=== PATIENT | male | born 1965 | race Caucasian/White ===

== ENCOUNTER 2017-02-27 21:07 | Emergency (ER) | payer SELFPAY ==
[~2017-02-27] VITALS: Ht 185.4 cm; Wt 86.4 kg
--- OUTSIDE RECORDS SUMMARY | 2017-02-27 21:11 | XMS REPORT | Continuity of Care Document ---
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 03/05/2016 FLORECITA AMAYA MD Ot J30.9 ALLERGIC RHINITIS, UNSPECIFIED 03/05/2016 FLORECITA AMAYA MD Ot N52.9 MALE ERECTILE DYSFUNCTION, UNSPECIFIED 03/05/2016 FLORECITA AMAYA MD Ot R00.0 TACHYCARDIA, UNSPECIFIED 03/05/2016 FLORECITA AMAYA MD Ot R03.0 ELEVATED BLOOD-PRESSURE READING, W/O SHELIA 03/05/2016 FLORECITA AMAYA MD Ot R55 SYNCOPE AND COLLAPSE 05/07/2016 FLORECITA AMAYA MD Ot 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 Visit Date/Time Discharge Status Pt. Type Provider Facility Loc./Unit Complaint [id number] 02/27/2017 21:07:00 PEN Preadmit [facility] ED [id number] 03/02/2016 15:56:00 ACT Outpatient FLORECITA AMAYA MD [facility] LAB [id number] 01/11/2013 09:55:00 Document Registration
--- OUTSIDE RECORDS SUMMARY | 2017-02-27 21:16 | XMS REPORT | Continuity of Care Document ---
Author Author [facility] Address Unknown Phone Unavailable Allergies Medications Problems [...] Status Pt. Type Provider Facility Loc./Unit Complaint [id number] 02/27/2017 21:12:00 ACT Emergency SOFI JOHNSON MD [facility] ED [id number] 03/02/2016 15:56:00 ACT Outpatient FLORECITA AMAYA MD [facility] LAB [id number] 01/11/2013 09:55:00 Document Registration
[2017-02-27] MEDS ORDERED: PROP10TA8 PO (21:27)
[2017-02-27] MEDS ORDERED: ALPR0.25 PO (21:27)
[2017-02-27] MEDS ORDERED: ASPI325T4 PO (21:27)
[2017-02-27 22:01] LABS: BASOPHILS % (AUTO) 0 % (0-2); EOSINOPHILS # (AUTO) 0.2 10^3uL; EOSINOPHILS % (AUTO) 1 % (0-4); LYMPHOCYTES # (AUTO) 1.4 X10^3; MEAN CORPUSCULAR HEMOGLOBIN 29.8 PG (26.0-34.0); MEAN CORPUSCULAR HGB CONC 34.9 g/dL (31.0-37.0); MEAN CORPUSCULAR VOLUME 86 FL (80-100); MEAN PLATELET VOLUME 9.1 FL (6.0-9.5); MONOCYTES # (AUTO) 1.1 X10^3; MONOCYTES % (AUTO) 8 % (3-11); NEUTROPHILS # (AUTO) 11.5 X10^3; NEUTROPHILS % (AUTO) 81 % (51-67); PLATELET COUNT 264 10^3uL (150-450); WHITE BLOOD COUNT 14.29 10^3uL (4.0-11.0)
[2017-02-27] MEDS ORDERED: morphine INJ 4 MG/ML 1 ML SYRINGE IV ONE ×3 (22:05→23:40)
[2017-02-27] MEDS ORDERED: VANCOMYCIN 1,000 MG in SODIUM CHLORIDE 250 ML IV ONE (22:05)
[2017-02-27] MEDS ORDERED: cefTRIAXone SODIUM 1,000 MG in SODIUM CHLORIDE 50 ML IV ONE (22:05)
[2017-02-27 22:11] LABS: ANION GAP 10.5 MEQ/L (3-15)
[2017-02-27] MEDS: SODIUM CHLORIDE FLUSH 10 ML SYR IV PRN ×3 (22:48→23:39)
[2017-02-27] MEDS: SODIUM CHLORIDE FLUSH 3 ML SYR IV PRN ×3 (22:48→23:39)
[2017-02-28] MEDS ORDERED: fentaNYL 100 MCG/2 ML VIAL IV ONE (00:15)
[2017-02-28] MEDS: SODIUM CHLORIDE FLUSH 10 ML SYR IV PRN (00:20)
[2017-02-28 01:15] VITALS: BP 140/62
--- NOTE | 2017-02-28 07:18 | Diagnostic Imaging Report ---
CLINICAL INDICATION: Patient poked end of second digit several times, again now swollen and painful and infected. EXAM: X-ray of the left hand, 3 views. COMPARISON: None. FINDINGS: There is soft tissue swelling involving the second digit. There is no evidence of radiodense foreign object or subcutaneous air. There is no acute fracture or dislocation of the left hand or second finger region. There are small degenerative spurs involving the first MTP joint region, first CMC joint regions. Remainder of the left hand is unremarkable. IMPRESSION: 1: There is no acute fracture or dislocation. 2: There is swelling about the left second digit with no radiodense foreign object or subcutaneous air. 3: Degenerative disease of the left hand. Dictated by: Dictated on workstation # [id number]
== END 2017-02-28 01:25 | disposition short-term general hospital (02) ==
LOC: ED 21:12
DX: S61.231A Puncture wound without foreign body of left index finger without damage to nail, initial encounter (principal); M79.645 Pain in left finger(s); M79.642 Pain in left hand; R60.9 Edema, unspecified; W22.8XXA Striking against or struck by other objects, initial encounter; Y92.009 Unspecified place in unspecified non-institutional (private) residence as the place of occurrence of the external cause
CPT/HCPCS: 36415; 73130; 80048; 85025; 86140; 96365; 96366; 96367; 96375; 96376; 99283; J0696; J2270; J3010; J3370; J7050

== ENCOUNTER → 2017-02-28 | Outpatient (CLI) | payer SELFPAY ==
[~2017-02-28] MED LIST: ALPR0.25 PO; ASPI325T4 PO; PROP10TA8 PO
== END ==
LOC: EMS 03:00
PROVIDERS: ATTEND Emergency Medicine
DX: L03.012 Cellulitis of left finger (principal)